=== PATIENT | male | born 1985 | race African-American/Black ===

== ENCOUNTER 2017-02-26 18:27 | Emergency (ER) | payer OTHER ==
[~2017-02-26] VITALS: Ht 180.3 cm; Wt 72.6 kg
[~2017-02-26 18:27] MED LIST: AMOXICILLIN500 MG PO; HYDROCODONE/ACE1 TA1 PO
[2017-02-26 18:32] VITALS: BP 125/86
[2017-02-26] MEDS ORDERED: IMITREX50 M1 PO (21:01)
[2017-02-26] MEDS ORDERED: IBUPROFEN600 M1 PO (21:02)
[2017-02-26] MEDS ORDERED: GABAPENTIN300 M2 PO (21:02)
[2017-02-26] MEDS ORDERED: TOPIRAMATE50 M1 PO (21:02)
--- NOTE | 2017-02-26 21:38 | ED UPPER/LOWER EXTREMITY COMPL ---
History of Present Illness General Chief Complaint: Hand or Wrist Injury Stated Complaint: HURT LEFT HAND WITH NAIL GUN 2 DAYS AGO Source: patient Exam Limitations: no limitations Vital Signs & Intake/Output Vital Signs & Intake/Output Vital Signs Date Time Temp Pulse Resp B/P B/P Pulse O2 O2 Flow FiO2 Mean Ox Delivery Rate 02/268 90 02/26 1832 98.7 105 16 125/86 98 Room Air Allergies Coded Allergies: NO KNOWN ALLERGIES (02/26/17) Reconcile Medications Gabapentin 300 MG CAPSULE 2 CAP PO BID NERVE PAIN (Reported) Ibuprofen 600 MG TABLET 1 TAB PO PRN PAIN (Reported) with food Ketorolac Tromethamine 10 MG TABLET 1 TAB PO TID PRN PAIN RECEIVED IM IN ER Sumatriptan Succinate (Imitrex) 50 MG TABLET 1 TAB PO AD PRN ÁLVAREZ (Reported) Topiramate 50 MG TABLET 1 TAB PO DAILY MIGRAINES (Reported) Triage Note: PT STATES HE IS HAVING PAIN IN HIS LEFT ARM SINCE YESTERDAY AFTER SHOOTING A NAIL INTO HIS NAD. PT STATES WHEN HE MOVES HIS ARM HE GETS A SHARP PAIN. Triage Nurses Notes Reviewed? yes Onset: Gradual Duration: constant Timing: recent history Severity: moderate Severity Numbers: 5 HPI: Patient is a 32-year-old male who presents emergency and that yesterday patient accidentally struck the ventral aspect of his hand with a nail gun which punctured the skin patient immediately pulled back his left arm patient was not wearing protective gloves Patient's tetanus is unknown. Patient is right arm dominant. Patient complains of a gradual onset today of left elbow and shoulder discomfort when moving Patient has been taking ibuprofen with no relief of symptoms. (SINAN BARNHART) Past History Travel History Traveled to [place] past 21 day No Medical History Any Pertinent Medical History? none Neurological: migraine Surgical History Surgical History: non-contributory Psychosocial History What is your primary language Singaporean Tobacco Use: Current Not Daily Daily Tobacco Use Amount/Type: =< 4 Cigarettes daily ETOH Use: denies use Illicit Drug Use: marijuana Family History Hx Contributory? No (SINAN BARNHART) Review of Systems Review of Systems Constitutional: Reports: no symptoms. EENTM: Reports: no symptoms. Respiratory: Reports: no symptoms. Cardiovascular: Reports: no symptoms. Gastrointestinal/Abdominal: Reports: no symptoms. Genitourinary: Reports: no symptoms. Musculoskeletal: Reports: see HPI. Skin: Reports: see HPI. Neurological/Psychological: Reports: no symptoms. Hematologic/Endocrine: Reports: no symptoms. Immunological: Reports: no symptoms. All Other Systems: Reviewed and Negative (SINAN BARNHART) Physical Exam Physical Exam General Appearance: no apparent distress, alert, comfortable Neurologic/Tendon: normal sensation, normal motor functions, normal tendon functions, responds to pain, no evidence tendon injury, no pulse deficit Skin: normal color, warm/dry Comments: Well-developed well-nourished no apparent distress. HEENT: Atraumatic, extraocular motion intact Neck: Supple, no lymphadenopathy Back: Nontender Respiratory: No respiratory distress Extremities: Left shoulder normal inspection mild generalized point tenderness. Active range of motion noted Left elbow normal inspection mild generalized point tenderness noted for active range of motion noted Neuro: Alert and oriented x3 Psych: Mood affect normal, normal memory normal judgment. Diagram Hands Front 1) 3 mm superficial puncture wound noted with no surrounding erythema no warmth noted tenderness no active discharge for Dr. range of motion noted with 1 -5 digit flexion extension 5 out of 5 RROM range of motion noted with flexion and extension (SINAN BARNHART) Progress Differential Diagnosis: arterial insufficiency, compartment syndrome, contusion, dislocation, DVT, fracture, gout, septic arthritis, sprain, tendon injury, FB RETENTION Plan of Care: Orders Procedure Date/time Status XRY-HAND, 3 View LEFT 02/26 2138 Active No concerns of tendon deficit or injury. No concerns at this time of infection however the area was cleaned with sterile water and bacitracin and bandage was applied Due to patient's acute event that occurred yesterday patient's left shoulder and elbow symptoms are most likely due to strain of musculoskeletal involvement. Patient had full active range of motion noted (SINAN BARNHART) Diagnostic Imaging: Viewed by Me: Radiology Read. Radiology Impression: no acute abnormality, no fracture Comments: PATIENT: MARKEL CORRAL PRESENT AGE: 32 PATIENT ACCOUNT NO: [id number] : 85 LOCATION: [facility] ([place]) ORDERING PHYSICIAN: SINAN CHEN SERVICE DATE: 02/26/17-2137 EXAM TYPE: RAD - XRY-HAND, LEFT EXAMINATION: XR HAND, LEFT CLINICAL INFORMATION: Puncture wound fourth metacarpal evaluate for foreign body and fracture COMPARISON: None TECHNIQUE: AP, lateral, and oblique views of the left hand. FINDINGS: The bones and soft tissues are normal. No fracture. Alignment is anatomic. Joint spaces are maintained. No erosions or soft tissue calcifications. IMPRESSION: Normal left hand. No foreign body or fracture (SINAN BARNHART) Departure Departure Disposition: HOME OR SELF CARE Condition: Stable Clinical Impression Primary Impression: Puncture wound of left hand Secondary Impressions: Left shoulder strain, Strain of left elbow Referrals: UNKNOWN (PCP/Family) Additional Instructions: As discussed in the prescription of ketorolac as directed for pain and inflammation. Prescription waiting a [facility] pharmacy. Begin to apply bacitracin to the wound once a the following 4 days. If you note signs of infection redness, pain, swelling, discharge return to emergency room. Begin icing the shoulder and elbow 20 minutes every 2 hours. Follow-up with primary care doctor on Thursday if no better Departure Forms: Customer Survey General Discharge Information Prescriptions: Current Visit Scripts Ketorolac Tromethamine 1 TAB PO TID PRN PAIN #15 TAB RECEIVED IM IN ER (SINAN BARNHART) PA/LIBRARY SCIENCE INSTRUCTOR Co-Sign Statement Statement: ED Attending supervision documentation- I saw and evaluated the patient. I have also reviewed all the pertinent lab results and diagnostic results. I agree with the findings and the plan of care as documented in the PA's/LIBRARY SCIENCE INSTRUCTOR's documentation. x I have reviewed the ED Record and agree with the PA's/LIBRARY SCIENCE INSTRUCTOR's documentation. [] Additions or exceptions (if any) to the PAs/LIBRARY SCIENCE INSTRUCTOR's note and plan are summarized below: [] (KAY CRUZ,TRISTIAN)
--- NOTE | 2017-02-26 22:14 | RADIOLOGY REPORT ---
EXAMINATION: XR HAND, LEFT CLINICAL INFORMATION: Puncture wound fourth metacarpal evaluate for foreign body and fracture COMPARISON: None TECHNIQUE: AP, lateral, and oblique views of the left hand. FINDINGS: The bones and soft tissues are normal. No fracture. Alignment is anatomic. Joint spaces are maintained. No erosions or soft tissue calcifications. IMPRESSION: Normal left hand. No foreign body or fracture
[2017-02-26] MEDS ORDERED: KETOROLAC TROME10 M1 PO (22:15)
== END 2017-02-26 22:39 ==
LOC: ERH 18:27
DX: S61.432A Puncture wound without foreign body of left hand, initial encounter (principal); S46.912A Strain of unspecified muscle, fascia and tendon at shoulder and upper arm level, left arm, initial encounter; W29.4XXA Contact with nail gun, initial encounter; X50.9XXA Other and unspecified overexertion or strenuous movements or postures, initial encounter; Y93.9 Activity, unspecified; Y92.9 Unspecified place or not applicable
CPT/HCPCS: 73130-LT; 90471; 90714; 96372; J1885